=== PATIENT | female | born 1940 | race Two or more races ===

== ENCOUNTER 2022-10-15 08:44 | Inpatient (IN) | payer OTHER ==
[~2022-10-15] VITALS: Ht 162.6 cm; Wt 98.8 kg
[~2022-10-15 08:44] MED LIST: ALPR0.5T7 PO; ATOR10TA PO; ESCI-28 PO; METO25TA36 PO; PANT40TA2 PO
[2022-10-15] MEDS ORDERED: ceFAZolin 1GM/50ML 100 ML IV ONE (09:35)
[2022-10-15] MEDS ORDERED: MIDAZOLAM HCL 2MG/2ML 2ml VIAL (1mg/ml) ONE (12:35)
[2022-10-15] MEDS ORDERED: fentaNYL CITRATE 5 ML ONE (12:35)
[2022-10-15] MEDS ORDERED: fentaNYL CITRATE 100 MCG/2 ML VL ONE (12:35)
[2022-10-15] MEDS ORDERED: ROCURONIUM 10MG/ML 10ML VIAL IV ONE (12:42)
[2022-10-15] MEDS ORDERED: ePHEDrine SULFATE 50 MG/ML AMP ONE (15:07)
[2022-10-15] MEDS ORDERED: ETOMIDATE (2MG/ML) 20ML VIAL IV ONE (15:07)
[2022-10-15] MEDS ORDERED: PROPOFOL 10 MG/ML 20 ML IV ONE (15:09)
[2022-10-15] MEDS ORDERED: ONDANSETRON HCL 4 MG/2 ML VIAL IV PRN (15:30)
[2022-10-15] MEDS ORDERED: HYDROmorphone HCL 2 MG/ML VL/or syr IV PRN ×3 (15:30→15:45)
[2022-10-15] MEDS ORDERED: ONDANSETRON HCL 4 MG/2 ML VIAL ONE (15:34)
[2022-10-15] MEDS ORDERED: NITROGLYCERIN 0.4 MG SL TAB SL PRN (15:45)
[2022-10-15] MEDS ORDERED: MILK OF MAGNESIA 30ML SUSP PO PRN (15:45)
[2022-10-15] MEDS ORDERED: D5W/SOD CHL 0.45% 1,000 ML IV SCH (15:45)
[2022-10-15] MEDS ORDERED: MORPHINE SULFATE INJ 2 MG/ml SYRG IV PRN (15:45)
[2022-10-15] MEDS ORDERED: HYDROcodone-ACET 10/325MG TAB PO PRN (15:45)
[2022-10-15] MEDS: ceFAZolin 1GM/50ML 50 ML IV SCH (15:45)
[2022-10-15] MEDS ORDERED: LACTATED RINGER'S 1,000 ML IV SCH (15:45)
[2022-10-15] MEDS ORDERED: MORPHINE SULFATE 4 MG/ML SYR/VIAL ONE (15:58)
[2022-10-15] MEDS ORDERED: MORPHINE SULFATE 4 MG/ML SYR/VIAL IV PRN (16:00)
[2022-10-15] MEDS: CYCLOBENZAPRINE HCL 10 MG TAB PO SCH ×2 (16:30→22:00)
[2022-10-15 18:50] VITALS: BP 70/43
[2022-10-15 18:52] VITALS: BP 65/44
[2022-10-15] MEDS ORDERED: NALOXONE HCL 0.4 MG/ML VIAL IV ONE (19:00)
[2022-10-15 19:05] VITALS: BP 114/64
[2022-10-15] MEDS ORDERED: SODIUM CHLORIDE 0.9% 500 ML IV ONE ×2 (19:15)
[2022-10-15] MEDS ORDERED: OXYCODONE W/ ACETAMINOPHEN 5/325MG TABLET PO PRN (19:15)
[2022-10-15] MEDS: NALOXONE HCL 0.4 MG/ML VIAL IV SCH ×3 (20:10→20:57)
[2022-10-15 20:17] VITALS: BP 134/59
[2022-10-15 20:17] LABS: Basophils # (auto) 0 10 ^3/uL (0-0.2); Basophils % (auto) 0.7 % (0.0-2.0); Eosinophils # (auto) 0.1 10 ^3/uL (0-0.8); Hematocrit 32.8 % (36.0-46.0); Hemoglobin 11.1 g/dL (12.2-16.2); Lymphocytes % (auto) 14.3 % (10.0-50.0); Mean Corpuscular Hemoglobin 33.1 pg (28.0-32.0); Mean Corpuscular Hgb Conc. 33.8 g/dL (32.0-36.0); Mean Corpuscular Volume 98.1 fL (80.0-100.0); Monocytes # (auto) 0.4 10 ^3/uL (0-1.3); Monocytes % (auto) 6.3 % (0.0-12.0); Neutrophils # (auto) 5.5 10 ^3/uL (1.6-8.6); Neutrophils % (auto) 77.7 % (37.0-80.0); Red Blood Cells 3.34 10^6/uL (4.0-5.20)
[2022-10-15 20:56] VITALS: BP 70/43
[2022-10-15] MEDS: SODIUM CHLORIDE 0.9% 1,000 ML IV SCH (21:01)
[2022-10-15 22:00] VITALS: BP 134/59
[2022-10-15] MEDS ORDERED: CYCLOBENZAPRINE HCL 10 MG TAB PO SCH (22:00)
[2022-10-15] MEDS ORDERED: MECLIZINE HCL 25 MG TAB PO PRN (22:00)
[2022-10-15 23:54] LABS: Basophils # (auto) 0 10 ^3/uL (0-0.2); Basophils % (auto) 0.5 % (0.0-2.0); Eosinophils # (auto) 0.1 10 ^3/uL (0-0.8); Eosinophils % (auto) 0.9 % (0.0-7.0); Hematocrit 31.1 % (36.0-46.0); Hemoglobin 10.2 g/dL (12.2-16.2); Lymphocytes # (auto) 0.6 10 ^3/uL (0.4-5.4); Lymphocytes % (auto) 9.9 % (10.0-50.0); Mean Corpuscular Hemoglobin 32.9 pg (28.0-32.0); Mean Corpuscular Hgb Conc. 32.9 g/dL (32.0-36.0); Mean Corpuscular Volume 100.1 fL (80.0-100.0); Monocytes # (auto) 0.5 10 ^3/uL (0-1.3); Monocytes % (auto) 8.2 % (0.0-12.0); Neutrophils # (auto) 5.3 10 ^3/uL (1.6-8.6); Neutrophils % (auto) 80.5 % (37.0-80.0); Red Blood Cells 3.11 10^6/uL (4.0-5.20); Red Cell Distribution Width 14.5 % (11.8-14.3); White Blood Cell 6.6 10^3/uL (4.4-10.8)
[2022-10-16] MEDS: ceFAZolin 1GM/50ML 50 ML IV SCH (00:35)
[2022-10-16] MEDS: SODIUM CHLORIDE 0.9% 1,000 ML IV SCH (04:12)
[2022-10-16 05:00] VITALS: BP 101/42
[2022-10-16] MEDS: CYCLOBENZAPRINE HCL 10 MG TAB PO SCH ×3 (05:34→21:15)
[2022-10-16 07:22] LABS: Basophils # (auto) 0 10 ^3/uL (0-0.2); Basophils % (auto) 0.4 % (0.0-2.0); Eosinophils # (auto) 0 10 ^3/uL (0-0.8); Eosinophils % (auto) 0.6 % (0.0-7.0); Hemoglobin 10.1 g/dL (12.2-16.2); Lymphocytes # (auto) 0.6 10 ^3/uL (0.4-5.4); Lymphocytes % (auto) 10.6 % (10.0-50.0); Mean Corpuscular Hemoglobin 33.1 pg (28.0-32.0); Mean Corpuscular Hgb Conc. 33.7 g/dL (32.0-36.0); Mean Corpuscular Volume 98.2 fL (80.0-100.0); Monocytes # (auto) 0.5 10 ^3/uL (0-1.3); Monocytes % (auto) 9.5 % (0.0-12.0); Neutrophils # (auto) 4.5 10 ^3/uL (1.6-8.6); Neutrophils % (auto) 78.9 % (37.0-80.0); Nucleated Red Blood Cells % 0.1 %; Red Blood Cells 3.05 10^6/uL (4.0-5.20); Red Cell Distribution Width 14.1 % (11.8-14.3); White Blood Cell 5.7 10^3/uL (4.4-10.8)
[2022-10-16 07:42] LABS: BUN/Creatinine Ratio 19.8; Calcium 7.7 mg/dL (8.5-10.1); Potassium 4.4 mmol/L (3.5-5.1)
[2022-10-16 08:00] VITALS: BP 89/35
[2022-10-16] MEDS: ACETAMINOPHEN 325 MG TAB PO PRN ×3 (08:26→21:15)
[2022-10-16 13:00] VITALS: BP 87/36
[2022-10-16 16:00] VITALS: BP 127/60
[2022-10-16 17:00] VITALS: BP 127/60
[2022-10-16] MEDS ORDERED: SODIUM CHLORIDE 0.9% 500 ML IV ONE (17:15)
[2022-10-16 22:00] VITALS: BP 122/52
[2022-10-17 05:00] VITALS: BP 121/57
[2022-10-17] MEDS: CYCLOBENZAPRINE HCL 10 MG TAB PO SCH ×4 (05:24→21:52)
[2022-10-17] MEDS: ACETAMINOPHEN 325 MG TAB PO PRN ×3 (05:24→13:43)
[2022-10-17 09:00] VITALS: BP 133/55
[2022-10-17 13:00] VITALS: BP 118/61
[2022-10-17 17:00] VITALS: BP 131/61
[2022-10-17] MEDS: HYDROcodone-ACET 10/325MG TAB PO PRN (18:47)
[2022-10-17 22:00] VITALS: BP 132/63
[2022-10-18] MEDS: HYDROcodone-ACET 10/325MG TAB PO PRN ×4 (01:04→19:34)
[2022-10-18 05:00] VITALS: BP 134/61
[2022-10-18] MEDS: CYCLOBENZAPRINE HCL 10 MG TAB PO SCH ×3 (05:16→22:03)
[2022-10-18 09:17] VITALS: BP 131/59
[2022-10-18 12:44] VITALS: BP 116/54
[2022-10-18 16:46] VITALS: BP 128/46
[2022-10-18 22:00] VITALS: BP 117/54
[2022-10-19 05:00] VITALS: BP 123/66
[2022-10-19] MEDS: CYCLOBENZAPRINE HCL 10 MG TAB PO SCH ×3 (06:12→21:12)
[2022-10-19 09:00] VITALS: BP 128/56
[2022-10-19] MEDS ORDERED: ALBUTEROL SULF 2.5 MG/0.5ML(0.5%) NEB SOLN NEB ONE (12:00)
[2022-10-19] MEDS ORDERED: ALBUTEROL MEDNEB 2.5 mg/3ml NEB ONE (12:08)
[2022-10-19] MEDS: HYDROcodone-ACET 10/325MG TAB PO PRN ×2 (12:22→21:12)
[2022-10-19 13:00] VITALS: BP 121/69
[2022-10-19 16:55] VITALS: BP 111/61
[2022-10-19 22:00] VITALS: BP 108/46
[2022-10-20 05:00] VITALS: BP 140/72
[2022-10-20] MEDS: CYCLOBENZAPRINE HCL 10 MG TAB PO SCH ×2 (05:12→13:47)
[2022-10-20 08:00] VITALS: BP 142/63
[2022-10-20] MEDS: HYDROcodone-ACET 10/325MG TAB PO PRN (10:45)
[2022-10-20 12:00] VITALS: BP 114/61
[2022-10-20] MEDS ORDERED: PANTOPRAZOLE 40 MG TAB PO SCH (15:24)
[2022-10-20 16:00] VITALS: BP 111/66
[2022-10-20 16:34] VITALS: BP 111/60
== END 2022-10-20 19:35 | disposition home health service (06) | DRG 460 ==
LOC: SUR 08:44 → TELE 15:34 → TELE-CENTR 18:32
PROVIDERS: ADMIT Orthopaedic Surgery; ATTEND Internal Medicine
PROC: 01NB0ZZ Release Lumbar Nerve, Open Approach (ICD-10-PCS; 2022-10-15)
PROC: 4A11X4G Monitoring of Peripheral Nervous Electrical Activity, Intraoperative, External Approach (ICD-10-PCS; 2022-10-15)
PROC: 00NY0ZZ Release Lumbar Spinal Cord, Open Approach (ICD-10-PCS; 2022-10-15)
PROC: 0SG00AJ Fusion of Lumbar Vertebral Joint with Interbody Fusion Device, Posterior Approach, Anterior Column, Open Approach (ICD-10-PCS; principal; 2022-10-15 12:34)
DX: M43.16 Spondylolisthesis, lumbar region (principal); F32.9 Major depressive disorder, single episode, unspecified; I10 Essential (primary) hypertension; M51.16 Intervertebral disc disorders with radiculopathy, lumbar region; Z96.643 Presence of artificial hip joint, bilateral; Z96.653 Presence of artificial knee joint, bilateral; G89.29 Other chronic pain; K21.9 Gastro-esophageal reflux disease without esophagitis; Z20.822 Contact with and (suspected) exposure to COVID-19; R73.03 Prediabetes; M19.90 Unspecified osteoarthritis, unspecified site
CPT/HCPCS: 36415; 76000; 80048; 85025; 86850; 86900; 86901; 94640; 97110; 97116; 97163; 97530; G0378; J0690; J2250; J2405; J2704

== ENCOUNTER 2022-10-26 11:00 | Emergency (ER) | payer OTHER ==
[~2022-10-26] VITALS: Ht 162.6 cm; Wt 82.0 kg
[2022-10-26 12:01] LABS: Basophils # (auto) 0.1 10 ^3/uL (0-0.2); Basophils % (auto) 1.5 % (0.0-2.0); Eosinophils # (auto) 0.3 10 ^3/uL (0-0.8); Hematocrit 31.7 % (36.0-46.0); Hemoglobin 10.6 g/dL (12.2-16.2); Lymphocytes # (auto) 1.2 10 ^3/uL (0.4-5.4); Lymphocytes % (auto) 22.1 % (10.0-50.0); Mean Corpuscular Hemoglobin 32.3 pg (28.0-32.0); Mean Corpuscular Hgb Conc. 33.5 g/dL (32.0-36.0); Mean Corpuscular Volume 96.4 fL (80.0-100.0); Monocytes # (auto) 0.7 10 ^3/uL (0-1.3); Monocytes % (auto) 12.9 % (0.0-12.0); Neutrophils # (auto) 3.2 10 ^3/uL (1.6-8.6); Neutrophils % (auto) 58.5 % (37.0-80.0); Nucleated Red Blood Cells % 0.1 %; Red Blood Cells 3.29 10^6/uL (4.0-5.20); Red Cell Distribution Width 13.8 % (11.8-14.3); White Blood Cell 5.5 10^3/uL (4.4-10.8)
[2022-10-26 12:22] LABS: Albumin 3.2 g/dL (3.4-5.0); BUN/Creatinine Ratio 18.7; Calcium 8.5 mg/dL (8.5-10.1)
[2022-10-26 12:25] LABS: Bilirubin, Total 0.3 mg/dL (0.2-1.0); Total Protein 6.5 g/dL (6.4-8.2)
[2022-10-26] MEDS ORDERED: HYDROcodone-ACET 10/325MG TAB PO ONE (15:45)
[2022-10-26 17:40] VITALS: BP 139/79
== END 2022-10-26 17:44 | disposition home or self-care (01) ==
LOC: ER 11:00
DX: I95.9 Hypotension, unspecified (principal); Z79.899 Other long term (current) drug therapy
CPT/HCPCS: 36415; 71045; 80053; 82962; 84484; 85025; 93005

== ENCOUNTER 2023-10-03 10:08 | Emergency (ER) | payer OTHER ==
[~2023-10-03] VITALS: Ht 162.6 cm; Wt 90.3 kg
[~2023-10-03 10:08] MED LIST changes: -ESCI-28 PO; +ESCI1TAB36 PO
[2023-10-03 10:44] VITALS: BP 125/62; RESP 17; TEMP 98.1; O2SAT 95
[2023-10-03] MEDS ORDERED: cefTRIAXone SOD 1,000 MG VL IM ONE (10:45)
[2023-10-03] MEDS ORDERED: methylPREDNISolone SOD SUCC 125 MG/2 ML VL IM ONE (10:45)
[2023-10-03 10:46] LABS: Basophils # (auto) 0.1 10 ^3/uL (0-0.2); Basophils % (auto) 0.7 % (0.0-2.0); Eosinophils # (auto) 0.1 10 ^3/uL (0-0.8); Eosinophils % (auto) 1.1 % (0.0-7.0); Hematocrit 38.9 % (36.0-46.0); Hemoglobin 12.8 g/dL (12.2-16.2); Lymphocytes # (auto) 1.2 10 ^3/uL (0.4-5.4); Lymphocytes % (auto) 11.6 % (10.0-50.0); Mean Corpuscular Hemoglobin 31.8 pg (28.0-32.0); Mean Corpuscular Hgb Conc. 32.9 g/dL (32.0-36.0); Mean Corpuscular Volume 96.9 fL (80.0-100.0); Monocytes # (auto) 1.3 10 ^3/uL (0-1.3); Monocytes % (auto) 12.6 % (0.0-12.0); Neutrophils # (auto) 7.4 10 ^3/uL (1.6-8.6); Red Blood Cells 4.01 10^6/uL (4.0-5.20); Red Cell Distribution Width 13.6 % (11.8-14.3)
[2023-10-03 11:09] LABS: Alanine Aminotransferase 26 U/L (7-40); Albumin 4.4 g/dL (3.2-4.8); Alkaline Phosphatase 93 U/L (46-116); Anion Gap 10 (5-15); Aspartate Aminotransferase 29 U/L (13-40); BUN/Creatinine Ratio 17.8 (10.0-20.0); Blood Urea Nitrogen 19 mg/dL (9-23); Calcium 9.3 mg/dL (8.5-10.1); Carbon Dioxide 26 mmol/L (20-30); Chloride 105 mmol/L (98-107); Glucose 96 mg/dL (74-106); Potassium 4.5 mmol/L (3.5-5.1); Sodium 141 mmol/L (136-145)
[2023-10-03 11:10] VITALS: PULSE 84
[2023-10-03 11:10] LABS: Bilirubin, Total 1.9 mg/dL (0.2-1.0); Total Protein 6.8 g/dL (5.7-8.2)
[2023-10-03] MEDS ORDERED: LEVO500T91 PO (12:06)
[2023-10-03] MEDS ORDERED: PRED20TA2 PO (12:06)
[2023-10-03 12:28] LABS: Urine Bacteria FEW /hpf (None Seen); Urine Blood Negative /uL (Negative); Urine Clarity Clear (Clear); Urine Color Yellow (Yellow); Urine Hyaline Cast FEW /lpf (0 - 2); Urine Mucus FEW (None Seen); Urine Protein, UAD 1+ (Negative); Urine Specific Gravity 1.032 (1.001-1.035); Urine WBC 1 /hpf (0 - 5)
[2023-10-03 12:41] LABS: COVID19 ANTIGEN SOFIA FIA NEGATIVE (NEGATIVE); Rapid Influenza A Negative (Negative); Rapid Influenza B Negative (Negative)
== END 2023-10-03 12:58 | disposition home or self-care (01) ==
LOC: ER 10:08
DX: J40 Bronchitis, not specified as acute or chronic (principal); N39.0 Urinary tract infection, site not specified; I10 Essential (primary) hypertension; R07.89 Other chest pain; Z90.49 Acquired absence of other specified parts of digestive tract; Z20.822 Contact with and (suspected) exposure to COVID-19
CPT/HCPCS: 36415; 71045; 80053; 81001; 83880; 84484; 85025; 87426; 87804; 93005; 96372; 99285; J0696; J2930